=== PATIENT | male | born 1940 | race Two or more races ===

== ENCOUNTER 2018-09-07 09:50 | Outpatient (CLI) | payer OTHER ==
[~2018-09-07] VITALS: Ht 167.6 cm; Wt 76.2 kg
== END 2018-09-07 10:10 | disposition home or self-care (01) ==
LOC: OFIC 805 09:50
DX: H90.3 Sensorineural hearing loss, bilateral (principal); H61.21 Impacted cerumen, right ear; J31.0 Chronic rhinitis

== ENCOUNTER 2018-09-21 10:12 | Outpatient (CLI) | payer OTHER ==
[~2018-09-21] VITALS: Ht 152.4 cm; Wt 76.2 kg
== END 2018-09-21 10:30 | disposition home or self-care (01) ==
LOC: OFIC 805 10:12
DX: H90.3 Sensorineural hearing loss, bilateral (principal); J31.0 Chronic rhinitis; H83.3X9 Noise effects on inner ear, unspecified ear

== ENCOUNTER 2019-09-10 14:35 | Emergency (ER) | payer OTHER ==
[~2019-09-10] VITALS: Ht 165.1 cm; Wt 77.1 kg
[2019-09-10] MEDS ORDERED: GLUCOTROL10 MG (15:08)
[2019-09-10] MEDS ORDERED: TAMS0.4C (15:08)
[2019-09-10] MEDS ORDERED: METFORMIN HCL500 MG (15:08)
== END 2019-09-10 18:11 | disposition home or self-care (01) ==
LOC: ER 14:35
DX: R31.0 Gross hematuria (principal)

== ENCOUNTER 2021-02-04 11:41 | Emergency (ER) | payer OTHER ==
[~2021-02-04] VITALS: Ht 167.6 cm; Wt 73.9 kg
[~2021-02-04 11:41] MED LIST: GLUCOTROL10 MG; METFORMIN HCL500 MG; TAMS0.4C
[2021-02-04] MEDS ORDERED: LEVOTHYROXINE25 MCG (12:12)
== END 2021-02-04 18:46 | disposition home or self-care (01) ==
LOC: ER 11:41
DX: R42 Dizziness and giddiness (principal)

== ENCOUNTER 2023-03-05 07:22 | Outpatient (CLI) | payer OTHER ==
[~2023-03-05 07:22] MED LIST changes: +LEVOTHYROXINE25 MCG
== END 2023-03-05 07:25 | disposition home or self-care (01) ==
LOC: NUCLEAR 07:22
PROVIDERS: ATTEND Internal Medicine Cardiovascular Disease
DX: I25.10 Atherosclerotic heart disease of native coronary artery without angina pectoris (principal)
CPT/HCPCS: 78452; 93017; A9500; J0153

== ENCOUNTER 2023-08-25 10:31 | Outpatient (CLI) | payer OTHER | END 2023-08-25 10:37 | disposition home or self-care (01) | LOC: RAD 10:31 | PROVIDERS: ATTEND Internal Medicine | DX: M79.641 Pain in right hand (principal) ==